=== PATIENT | female | born 1985 ===

== ENCOUNTER 2018-05-04 10:39 | Emergency (ER) | payer MEDICAID ==
[2018-05-04 11:09] VITALS: RESP 18; O2SAT 99
[2018-05-04 12:44] VITALS: BP 104/53; PULSE 89; TEMP 98.2
--- NOTE | 2018-05-04 21:23 | ED PDOC ---
Arrival/HPI - General Chief Complaint: ENT Problem Time Seen by Provider: 05/04/18 11:10 - History of Present Illness Narrative History of Present Illness (Text): 32 year old female with no significant past medical history presents to the emergency department complaining of sore throat X 1 day. Sore throat is worse when swallowing. Tolerating po per baseline. Associated mild frontal headache an anterior lymphadenopathy. Denies sick contacts or recent travel. Has not taken any medication for pain today. Denies vision changes, dizziness, abdominal pain, N/V/D, difficulty breathing, chest pain, SOB, back pain, urinary symptoms, cough, congestion, or any other associated complaints. Past Medical History - Cardiac Hx Cardiac Disorders: No - Pulmonary Hx Respiratory Disorders: No - Neurological Hx Neurological Disorder: No - HEENT Hx HEENT Disorder: No - Renal Hx Renal Disorder: No - Endocrine/Metabolic Hx Hypothyroidism: Yes - Hematological/Oncological Hx Blood Disorders: No - Integumentary Hx Dermatological Disorder: No - Musculoskeletal/Rheumatological Hx Musculoskeletal Disorders: No - Gastrointestinal Hx Gastrointestinal Disorders: No - Genitourinary/Gynecological Hx Genitourinary Disorders: No - Psychiatric Hx Psychophysiologic Disorder: No Hx Substance Use: No - Surgical History Hx Section: Yes Family/Social History - Physician Review Nursing Documentation Reviewed: Yes Family/Social History: No Known Family HX Smoking Status: Never Smoked Hx Alcohol Use: No Hx Substance Use: No Allergies/Home Meds Allergies/Adverse Reactions: Allergies No Known Allergies Allergy (Verified 05/04/18 11:10) Home Medications: Home Meds Medication Instructions Recorded Confirmed Levothyroxine [Synthroid] 88 mcg PO DAILY 05/04/18 05/04/18 Physical Exam Vital Signs Reviewed: Yes Vital Signs Temp Pulse Resp BP Pulse Ox 05/04/18 12:48 98.2 F 89 18 104/53 L 99 05/04/18 12:41 98.2 F 89 18 104/53 L 99 05/04/18 12:04 99.2 F 05/04/18 11:58 76 18 118/61 99 05/04/18 11:07 99.2 F 88 18 120/64 99 Temperature: Afebrile Blood Pressure: Normal Pulse: Regular Respiratory Rate: Normal Appearance: Positive for: Well-Appearing, Non-Toxic, Comfortable Pain Distress: None Mental Status: Positive for: Alert and Oriented X 3 - Systems Exam Head: Present: Atraumatic, Normocephalic Pupils: Present: PERRL Extroacular Muscles: Present: EOMI Conjunctiva: Present: Normal Ears: Present: Normal, NORMAL TM Mouth: Present: Moist Mucous Membranes Pharnyx: Present: ERYTHEMA, EXUDATE (bilateral tonsils), TONSILS ENLARGED. No: Uvular Deviation, Muffled/Hoarse Voice, Soft Palate/Uvular Edema Nose (External): Present: Atraumatic Nose (Internal): Present: Normal Inspection, Moist Neck: Present: Normal Range of Motion Respiratory/Chest: Present: Clear to Auscultation, Good Air Exchange. No: Respiratory Distress, Accessory Muscle Use Cardiovascular: Present: Regular Rate and Rhythm, Normal S1, S2, Peripheal Pulses Present. No: Murmurs Abdomen: Present: Normal Bowel Sounds. No: Tenderness, Distention, Peritoneal Signs Back: Present: Normal Inspection. No: CVA Tenderness Upper Extremity: Present: Normal Inspection, Normal ROM, NORMAL PULSES, Capillary Refill < 2s. No: Cyanosis, Edema Lower Extremity: Present: Normal Inspection, Normal ROM. No: Edema Neurological: Present: GCS=15, CN II-XII Intact, Speech Normal, Motor Func Grossly Intact, Normal Sensory Function, Gait Normal Skin: Present: Warm, Dry, Normal Color. No: Rashes Lymphatic: Present: Cervical Adenopathy (bilateral tender anterior cervical lymph nodes) Psychiatric: Present: Alert, Oriented x 3, Normal Insight, Normal Concentration, Normal Affect, Normal Mood Medical Decision Making ED Course and Treatment: Initial Plan: * Rapid Flu * Rapid Strep Strep positive NKDA, will give dose of Amoxicillin with prescription on discharge. Plan of care discussed with patient, and strict instructions given regarding prescriptions, importance of follow up, and signs to return to Emergency Department, to include difficulty swallowing or breathing, vision changes, N/V, or any other new/worsening symptoms. Patient verbalizes understanding of discussion. Patient A&Ox3, ambulating with steady gait, stable for discharge home. - Lab Interpretations Lab Results: Lab Results 05/04/18 11:31: Grp A Beta Strep Ag Positive H 05/04/18 11:30: Influenza Typ A,B (EIA) Negative for flu a/b - Medication Orders Current Medication Orders: Discontinued Medications Acetaminophen (Tylenol 325mg Tab) 650 mg PO STAT STA Stop: 05/04/18 11:43 Last Admin: 05/04/18 12:04 Dose: 650 mg MAR Pain/Vitals Document 05/04/18 12:04 BB (Rec: 05/04/18 12:06 BB [id number]) Pain Reassessment Is This A Pain ReAssessment? No Sleep Is patient sleeping during reassessment? No Presence of Pain Presence of Pain Yes Pain Scale Used Protocol: PSCALES Pain Scale Used Numeric Location Pain Location Body Project Lead Description Constant Intensity 6 Vitals Temperature (97.6 F-99.6 F) 99.2 F Temperature Source Oral Amoxicillin (Amoxil 500 Mg Cap) 500 mg PO STAT STA; Protocol Stop: 05/04/18 12:10 Last Admin: 05/04/18 12:46 Dose: 500 mg Disposition/Present on Arrival - Present on Arrival Any Indicators Present on Arrival: Yes History of DVT/PE: No History of Uncontrolled Diabetes: No Urinary Catheter: No History of Decub. Ulcer: No History Surgical Site Infection Following: None - Disposition Have Diagnosis and Disposition been Completed?: Yes Diagnosis: Strep pharyngitis Disposition: HOME/ ROUTINE Disposition Time: 12:45 Patient Plan: Discharge Condition: STABLE Discharge Instructions (ExitCare): Strep Throat (DC) Print Language: [place] Additional Instructions: Amoxicilina 500 mg cada 12 horas x 10 rosenthal. Ibuprofeno cada 8 horas segn sea necesario para el dolor. Incrementa los lquidos para mantenerte hidratado. Seguimiento con mdico primario o clnica dentro de 2 rosenthal. Regrese a la patricia de emergencias para cualquier sntoma nuevo / que empeora Prescriptions: Amoxicillin 500 mg PO Q12H 10 Days #19 tablet Ibuprofen [Motrin Tab] 600 mg PO Q8H PRN #14 tab PRN Reason: Pain, Moderate (4-7) Referrals: [facility] [Outside] - Follow up with primary [facility] [Outside] - Follow up with primary Karely Lujan MD [Medical Doctor] - Follow up with primary Forms: [employer] (Polish), WORK NOTE
== END 2018-05-04 12:48 | disposition home or self-care (01) ==
LOC: ED 10:39
DX: J02.0 Streptococcal pharyngitis (principal)